=== PATIENT | male | born 1995 | race Caucasian/White ===

== ENCOUNTER 2016-10-10 15:48 | Emergency (ER) | payer SELFPAY ==
[2016-10-10 18:29] LABS: BASOPHIL % 0.5 % (0-2); PLATELET COUNT 207 x10^3mcL (130-400); RED CELL DISTRIBUTION WIDTH 12.9 % (11.5-14.5)
[2016-10-10 18:34] LABS: AMPHETAMINE QUAL UR NONE DETECTED (NEG <=1000)
[2016-10-10 18:40] LABS: CALCIUM 9.1 mg/dL (8.5-10.1); CHLORIDE SERUM 102 mmol/L (98-107); CREATININE SERUM 1.1 mg/dL (0.7-1.3); GFR1 > 60 mL/min; GLUCOSE SERUM 77 mg/dL (74-106); POTASSIUM SERUM 4.4 mmol/L (3.5-5.1); SODIUM SERUM 138 mmol/L (136-145)
[2016-10-10 18:45] LABS: ALBUMIN 4.4 g/dL (3.4-5.0); ALKALINE PHOSPHATASE 108 U/L (46-116); ALT/SGPT 43 U/L (16-63); AST/SGOT 31 U/L (15-37); BILIRUBIN TOTAL 0.5 mg/dL (0.20-1.00); TOTAL PROTEIN, SERUM 8.3 g/dL (6.4-8.2)
[2016-10-10 19:47] VITALS: BP 130/75
== END 2016-10-10 19:47 | disposition home or self-care (01) ==
LOC: ED 15:48
PROVIDERS: Emergency Medicine
DX: R55 Syncope and collapse (principal); J45.909 Unspecified asthma, uncomplicated
CPT/HCPCS: 36600

== ENCOUNTER 2016-12-08 22:43 | Emergency (ER) | payer SELFPAY ==
[2016-12-08 23:26] VITALS: BP 118/92
== END 2016-12-08 23:26 | disposition home or self-care (01) ==
LOC: ED 22:43
DX: G47.00 Insomnia, unspecified (principal); R20.9 Unspecified disturbances of skin sensation

== ENCOUNTER 2017-04-15 21:47 | Emergency (ER) | payer OTHER ==
[~2017-04-15] VITALS: Ht 167.6 cm; Wt 60.8 kg
[2017-04-15 23:29] VITALS: BP 120/76
== END 2017-04-16 00:05 | disposition home or self-care (01) ==
LOC: ED 21:47
DX: S62.101A Fracture of unspecified carpal bone, right wrist, initial encounter for closed fracture (principal); J45.909 Unspecified asthma, uncomplicated; M79.641 Pain in right hand; W18.30XA Fall on same level, unspecified, initial encounter; Y93.66 Activity, soccer; Y99.8 Other external cause status; Y92.89 Other specified places as the place of occurrence of the external cause
CPT/HCPCS: J1885

== ENCOUNTER 2017-11-17 10:20 | Emergency (ER) | payer OTHER ==
[~2017-11-17] VITALS: Ht 167.6 cm; Wt 64.0 kg
[2017-11-17 10:34] VITALS: BP 137/56; Ht 167.6 cm; Wt 64.0 kg
== END 2017-11-17 12:25 | disposition home or self-care (01) ==
LOC: ED 10:20
DX: S62.304A Unspecified fracture of fourth metacarpal bone, right hand, initial encounter for closed fracture (principal); J45.909 Unspecified asthma, uncomplicated; W19.XXXA Unspecified fall, initial encounter; Y93.89 Activity, other specified; Y92.89 Other specified places as the place of occurrence of the external cause; Y99.8 Other external cause status